=== PATIENT | female | born 1980 | race Caucasian/White ===

== ENCOUNTER 2019-12-02 16:36 | Inpatient (IN) | payer OTHER, SELFPAY ==
[2019-12-02] VITALS (13 sets, daily range): BP systolic 91–117; BP diastolic 52–87; PULSE 56–93; TEMP 36.5; BMI 26.9
--- NOTE | 2019-12-02 16:43 | LDADM ---
This patient, Kathy Bowman, was admitted to Labor/Delivery/Recovery 109 on 12/02/19 at 16:36. Plans for labor, pain management and were discussed with patient. Patient/family oriented to hospital policies and general routines including ID bracelet, bed and alarms, visiting hours, pain management, procedures, bathroom and other care routines, personal items, smoking policy, room service/diet and guest tray routines, infant security routines, and visiting hours. Patient/Family are encouraged to report perceived risks to care and to ask questions if they do not understand what they are told or what they should do. See OBIX for further documentation.
[2019-12-02 17:14] LABS: Basophils Percent Auto 0.3 % (0.2-1.2); Eosinophils Percent Auto 0.3 % (0-4.4); Hematocrit 38.7 % (37.0-47.0); Hemoglobin 13.1 g/dL (12.0-15.0); Immature Granulocyte Absolute 0.02 K/mm3 (0.00-0.031); Immature Granulocyte Percent A 0.3 % (0-0.5); Immature Platelet Fraction Pct 15.5 % (0.9-11.2); Lymphocytes Absolute Auto 1.47 K/mm3 (0.9-3.2); Lymphocytes Percent Auto 20.1 % (18.3-44.2); Mean Corpuscular HGB Conc 33.9 g/dl (32-36); Mean Corpuscular Hemoglobin 32.3 pg (26-34); Mean Corpuscular Volume 95.3 fl (80-100); Monocytes Absolute Auto 0.5 K/mm3 (0.1-0.6); Monocytes Percent Auto 7.4 % (2.6-8.5); Neutrophils Absolute Auto 5.3 K/mm3 (1.3-6.7); Neutrophils Percent Auto 71.6 % (45.5-73.1); Platelet Count Result 182 k/mm3 (150-375); Red Blood Count 4.06 M/mm3 (4.2-5.4); Red Cell Distribution Width 13.4 % (11.5-14.5); White Blood Count 7.3 K/mm3 (4.5-10.0)
[2019-12-02] MEDS: DINOPROSTONE 10 MG VAG INSERT VAGINAL (17:25)
[2019-12-02] MEDS: AMPICILLIN 2 GM/NS 100 ML 2 GM/100 ML BAG IVPB (21:00)
[2019-12-02] MEDS: LACTATED RINGERS 1,000 ML 125 ML IV CONT ×2 (21:01→23:00)
[2019-12-03] VITALS (132 sets, daily range): BP systolic 74–127; BP diastolic 39–92; PULSE 27–132; TEMP 36.1–37.5; O2SAT 70–100
[2019-12-03] MEDS: LACTATED RINGERS 1,000 ML 125 ML IV CONT ×3 (00:10→20:40)
[2019-12-03] MEDS: AMPICILLIN 1 GM/NS 50 ML 1 GM/50 ML BAG IVPB ×6 (00:10→20:35)
--- NOTE | 2019-12-03 03:09 | WPDANESEPP ---
Anes - Eval Pre Procedure Procedure: labor epidural Date/Time: 12/03/19 03:09 Surgeon: yvrose Pre Op Diagnosis: IOL Patient Data Age: 39 Gender: F Height: 1.6 m Weight: 69 kg Last Vital Signs Temp 36.5 C 12/02/19 18:27 Pulse 82 12/02/19 23:30 BP 91/52 L 12/02/19 23:30 Allergies Allergy/AdvReac Type Severity Reaction Status Date / Time adhesive tape Allergy Unknown ITCHING, Verified 01/15/18 10:36 RED latex Allergy Unknown Itching Verified 10/30/19 15:38 Sulfa (Sulfonamide Allergy Unknown Hives Verified 10/30/19 15:38 Antibiotics) Home Medications Medication Instructions Recorded Confirmed Type PNV cmb#95-ferrous fumarate-FA 1 tablet PO DAILY 10/30/19 12/02/19 History [] Laboratory Tests 12/02/19 12/02/19 12/02/19 16:53 16:53 16:53 WBC 7.3 K/mm3 K/mm3 (4.5-10.0) RBC 4.06 M/mm3 L M/mm3 (4.2-5.4) Hgb 13.1 g/dL g/dL (12.0-15.0) Hct 38.7 % % (37.0-47.0) MCV 95.3 fl fl (80-100) MCH 32.3 pg pg (26-34) MCHC 33.9 g/dl g/dl (32-36) RDW 13.4 % % (11.5-14.5) Plt Count 182 k/mm3 k/mm3 (150-375) MPV 13.0 fl H fl (7.4-10.4) Immature Gran % (Auto) 0.3 % % (0-0.5) Neut % (Auto) 71.6 % % (45.5-73.1) Lymph % (Auto) 20.1 % % (18.3-44.2) [place] % (Auto) 7.4 % % (2.6-8.5) Eos % (Auto) 0.3 % % (0-4.4) Baso % (Auto) 0.3 % % (0.2-1.2) Lymph # (Auto) 1.47 K/mm3 K/mm3 (0.9-3.2) [place] # (Auto) 0.5 K/mm3 K/mm3 (0.1-0.6) Eos # (Auto) 0.0 K/mm3 K/mm3 (0-0.3) Baso # (Auto) 0.0 K/mm3 K/mm3 (0.0-0.1) Abs Immat Gran (auto) 0.02 K/mm3 K/mm3 (0.00-0.031) Absolute Neuts (auto) 5.3 K/mm3 K/mm3 (1.3-6.7) Absolute Nucleated RBC 0.0 K/mm3 K/mm3 (0.0-0.012) Nucleated RBC % 0.0 % % (0.0-0.2) % Immature Plt Fraction 15.5 % H % (0.9-11.2) RPR Pending Blood Type A Positive Antibody Screen Negative Patient hx anesthesia problems: none Family hx anesthesia problems: none [facility] Family History Family History (Updated 10/30/19 @ 15:42 by Dakotah Womack RN) Father Lung cancer Chronic obstructive pulmonary disease High cholesterol Peripheral arterial disease Hypertension Mother Rheumatoid arthritis High cholesterol Social History Social History Smoking status: Current every day smoker Tobacco type: e-cigarettes/vaping Second hand tobacco smoke exposure: No Alcohol intake: current Substance use: never Spiritual care concerns: No Exam Day of Procedure 12/03/19 03:09
--- NOTE | 2019-12-03 08:46 | WPDOBADMIT ---
Obstetrics - Admit Note Admission Note: record reviewed. Additions to the history and/or subsequent changes in the physical findings follow. 39 y/o at 40 6/7 weeks here for induction of labor. Cervidil overnight. Had SROM at 0315, confirmed by the nursing staff. Cervidil has been withdrawn. She is having contractions every 3-5 min and has declined oxytocin so far. Ampicillin for GBS colonization. Smoker. otherwise uncomplicated. AVSS NST reactive TOCO: contractions every 3-5 min ABD soft, nontender, gravid, vertex EXT nontender Cervix 2-3/80/-2. Vertex. A: IUP at term, here for induction of labor. P: Need to continue induction with oxytocin. Reviewed risks, benefits, alternatives, and she agrees..
[2019-12-03] MEDS: OXYTOCIN 30 UNITS/NS 500 ML 30 UNITS/500 ML BAG IV CONT (08:55)
--- NOTE | 2019-12-03 12:22 | PM.OBPNLAB ---
Pain Control Date/time seen: 12/03/19 12:22 Comments: Feeling more painful contractions. Pelvic Exam Dilation (cm): 5 Effacement (%): 90 station: -2 Comments: IUPC placed. Contractions Contraction frequency: 3 Contraction pattern: Regular Status status: Category l Assessment and Plan Comments: Continue oxytocin.
[2019-12-03] MEDS: fentaNYL CITRATE INJ (*CRX) 100 MCG/2 ML VIAL 50 MCG IV PUSH (15:47)
[2019-12-03] MEDS: FAMOTIDINE 20 MG/2 ML VIAL IV PUSH (19:00)
--- NOTE | 2019-12-03 22:11 | PM.OBPNLAB ---
Pain Control Date/time seen: 12/03/19 22:11 Comments: Has started pushing Pelvic Exam Dilation (cm): 10 Effacement (%): 100 station: +2 Contractions Contraction frequency: 3 Contraction pattern: Regular Status status: Category ll Assessment and Plan Comments: Continue pushing. Anticipate .
[2019-12-04] VITALS (29 sets, daily range): BP systolic 91–126; BP diastolic 49–80; PULSE 58–135; RESP 16–18; TEMP 36.6–37.2; O2SAT 96–100
--- NOTE | 2019-12-04 00:18 | PM.OBPRVD ---
OB - Delivery Note Procedure Delivery date: 12/03/19 Procedure: Induction of labor with Induction method: per cervidil protocol Delivery augmentation: pitocin Delivery monitor: external FHT, external uterine and internal uterine Route of delivery: Laceration Description: Periurethral and Perineal - 2nd Degree Delivery repair: vicryl (3-0) Specimen: Yes (cord blood) Estimated blood loss (mL): 120 Anesthesia type: Epidural Disposition: PACU Complications: None Narrative: 39 y/o at 40 6/7 weeks gestation who presented to the hospital for induction of labor. Cervidil was placed overnight and ampicillin was administered for GBS colonization. She developed contractions and had spontaneous rupture of membranes. Clear fluid was noted. Oxytocin was administered intravenously. She received an epidural for pain control. Her labor progressed and her cervix dilated completely. She pushed with good effort. Thickly meconium-stained fluid was noted at this time. The head rotated from ROP to DIMAS position and delivered to the perineum. The anterior shoulder delivered, but a very tight nuchal cord was encountered. This was clamped and cut and the body subsequently delivered. The nose and mouth were bulb suctioned. The infant was handed off the field. Cord blood was collected. The placenta delivered spontaneously and was grossly normal in appearance. The usual 3 vessel cord was noted. A second degree midline perineal laceration was sustained. This was reapproximated using 3 0 Vicryl in the usual layered fashion. Bilateral periurethral lacerations were noted. The left-sided laceration required two figure-of eight sutures. Excellent hemostasis resulted as did excellent reapproximation of the normal anatomy. Needle and instrument counts were correct. The patient was taken to recovery room in stable condition. The infant was taken to the special care nursery for observation. I was present and scrubbed for the entire delivery. Baby Date of : 12/03/19 Time of : 23:52 Weeks of gestation at delivery: 40 Infant gender: Male Weight (pounds): 7 Weight (ounces): 15 presentation: vertex position: Right Occiput Anterior Placenta delivery description: Spontaneous and Normal Configuration cord vessel description: 3 Vessels and Nuchal Cord score one minute: 2 score five minutes: 6 score ten minutes: 8
[2019-12-04] MEDS: OXYTOCIN 30 UNITS/NS 500 ML 30 UNITS/500 ML BAG 125 UNITS IV CONT (00:20)
--- NOTE | 2019-12-04 00:32 | PM.OBDSVD ---
DS: Admitting Diagnosis Admitting Diagnosis Admitting Diagnosis: IUP at 40 6/7 weeks GBS colonization DS: Discharge Diagnosis Discharge Diagnosis (1) (normal spontaneous vaginal delivery): Code(s): O80 - Encounter for full-term uncomplicated delivery Status: Acute (2) GBS (group B Streptococcus carrier), +RV culture, currently : Code(s): O99.820 - Streptococcus B carrier state complicating Status: Acute OB - DS: Summary OB Procedures : None OB Procedures Intrapartum: Spontaneous Vag Delivery OB Procedures: : None Discharge Plan Discharge Attending physician on discharge: Sidney Sanchez Consulting providers: Kendell Fenton Discharging Clinician: Sidney Sanchez Patient Disposition: Home, Self-Care Activity: no shower, no straining and pelvic rest Diet: regular Wound Care Instructions: follow printed instructions Discharge Instructions: Education: Mom and Baby Guide Given to: Mother Follow-Up: Call your delivering provider's office for an appointment to be seen in: 6 Weeks Mom and baby should come to the [facility] for the follow-up appointment. Appointment Date/Time: December 07, 2019 at 11:00 am What to expect at your follow-up visit: Blood Pressure Check Physical Assessment Call [phone] if you are unable to keep your appointment time. BREAST CARE: * Wear a snug supportive bra. * For engorgement discomfort: Breast Feeding: * Apply warm moist washcloths * Express milk as needed to relieve engorgement * Wear loose clothing * For sore nipples: * Identify correct latch-on * Apply warm moist washcloths before and after nursing * Air dry nipples after nursing * May apply Lansinoh cream to nipples EPISIOTOMY/PERINEAL CARE: * Until bleeding stops, use your agusto bottle after urinating * Change your pad frequently throughout the day * You may take sitz baths several times a day (fill your bathtub with warm water and soak for 20 minutes.) Do NOT bathe in the water * No tub baths until seen by your physician - You may shower ACTIVITY: * Rest as much as possible. * Do not exercise or lift anything heavier than your baby (such as laundry or other children.) * Avoid stairs or driving as much as possible. * Do not put anything into the vagina. No douching, tampons, or sexual activity until seen by physician. NOTIFY PHYSICIAN IF YOU HAVE ANY QUESTIONS OR IF ANY OF THE FOLLOWING SYMPTOMS OCCUR: * If your vaginal area becomes red, swollen, or more painful than what you have experienced in the hospital. * If your vaginal bleeding becomes foul smelling. * If your vaginal bleeding becomes more heavy than a period or if your bleeding changes from pink to bright red. However, you may pass an occasional walnut-sized clot once or twice for the first week . * If you experience a sharp, shooting pain in your calves. * If you discover a hard, reddened area on your breast or if you experience flu-like symptoms. DIET: * Eat regular, well-balanced meals. * Drink plenty of fluids daily. If , drink to thirst. Call or return if temperature above 100.4? F, increased abdominal pain, increased vaginal bleeding or any new problems. Patient Instructions: Your Baby (DC), and Nipple Soreness (DC), and Breast Engorgement (DC), How to Stop Smoking (DC) Stand Alone Forms: General Discharge Information Follow-up/Referrals: Sidney Sanchez MD [Physician] - (6 weeks) Discharge Medications: New ibuprofen 600 mg tablet 600 mg PO Q6H PRN (Reason: cramps) Qty: 30 RF: 0 Continued PNV cmb#95-ferrous fumarate-FA [] 28 mg iron- 800 mcg Tablet 1 tablet PO DAILY RF: 0 Date of admission: 12/02/19 16:36 Primary Care Provider: Trevon Conte Admitting
[2019-12-04] MEDS: WITCH HAZEL 40 PADS 1 PAD TOPICAL (02:32)
[2019-12-04] MEDS: BENZOCAINE 20% AER SPR (*SP) 56 GM CAN 1 SPRAY TOPICAL (02:32)
--- NOTE | 2019-12-04 03:52 | OBPPTRN ---
Patient transferred to post room 285 via wheelchair. Support person present. Oriented to unit, room, information board, rooming in, admission packet and security measures. Patient verbalizes understanding.
[2019-12-04] MEDS: IBUPROFEN 600 MG TABLET PO ×2 (04:29→16:21)
--- NOTE | 2019-12-04 07:00 | WPDANLDPN2 ---
Anes-Prog Note L&D Date/Time: 12/04/19 07:00 Comfortable throughout: labor and delivery Neuraxial method: epidural Epidural/Spinal procedure site: clean & non-tender Neuro status: Neuro function grossly intact. Cardiovascular status: normal Respiratory status: normal Airway patency: baseline Mental status: baseline Post-Op hydration status: normal Vital Signs: Last Vital Signs Temp 36.8 C 12/04/19 03:52 Pulse 60 12/04/19 03:52 Resp 16 12/04/19 03:52 BP 100/60 12/04/19 03:52 Pulse Ox 100 12/04/19 03:52 Pain score (VAS): 0/10 I/O: Intake & Output 12/03/19 12/03/19 12/04/19 15:59 23:59 07:59 Intake Total 1100 1100 1200 Output Total 230 Balance 1100 1100 970 Post-procedural complaints: none Patient feedback: Patient satisfied with anesthetic care.
--- NOTE | 2019-12-04 07:29 | PM.OBPNVD ---
OB - PN: Subj Subjective Date/time seen: 12/04/19 07:29 Patient comments: no complaints, pain well controlled and tolerating diet [place] feeding status: exclusively breast feeding Narrative: patient doing well this AM. No complaints. Pain is well controlled. She reports minimal bleeding. She is ambulating and voiding without difficulty. She is tolerating PO. She denies N/V, fever, chills. OB - PN: Obj Data Labs CBC & Chem 7: 12/02/19 16:53 OB - PN A/P Plan day: 1 Plan: routine care Comments: patient doing well H/H stable continue routine care Time Spent With Patient Time: Total time spent is greater than 50% in coordination of care (as documented) at patient's floor/unit and/or counseling patient: Time with patient: less than 15 minutes Review of Systems Review of Systems: All systems reviewed & are unremarkable except as noted in HPI and below Exam Const: General: comfortable and no acute distress Resp: Effort & Inspection: normal respiratory effort Cardio: Rate: regular rate GI: GI Palp: Yes Soft to palpation and No Tenderness to palpation present (GI) Auscultation: normal bowel sounds Other: fundus firm and below umbilicus. Psych: Affect: normal affect
--- NOTE | 2019-12-04 07:45 | PC.NURSE ---
PT introductions made and plan of care discussed per post , pain management, breast feeding, daily care activities. PT verbalized understanding of such care.
[2019-12-04 09:31] LABS: Rapid Plasma Reagin Non-Reactive (NonReactive)
[2019-12-04] MEDS: DOCUSATE SODIUM 100 MG CAPSULE PO ×2 (11:22→16:22)
[2019-12-04] MEDS: ACETAMINOPHEN 325 MG TABLET 650 MG PO ×2 (11:23→16:22)
[2019-12-04] MEDS: LANOLIN (LANSINOH) 7.5 GM CREAM 1 APPLIC TOPICAL (11:25)
[2019-12-05 06:17] LABS: Hematocrit 34.1 % (37.0-47.0); Hemoglobin 11.8 g/dL (12.0-15.0)
--- NOTE | 2019-12-05 06:38 | PM.OBPNVD ---
OB - PN: Subj Subjective Date/time seen: 12/05/19 06:38 Patient comments: no complaints and pain well controlled baby status: doing well and nursing well OB - PN: Obj Data Labs CBC & Chem 7: 12/05/19 05:30 Labs: Laboratory Results - last 24 hr 12/02/19 12/05/19 16:53 05:30 Hgb 11.8 L Hct 34.1 L RPR Non-reactive OB - PN A/P Plan day: 2 Plan: routine care, discharge home and follow up 6 weeks Time Spent With Patient Time: Total time spent is greater than 50% in coordination of care (as documented) at patient's floor/unit and/or counseling patient: Time with patient: less than 15 minutes Review of Systems Review of Systems: All systems reviewed & are unremarkable except as noted in HPI and below Exam Const: General: no acute distress Eyes: General: appearance normal, both eyes and all related structures Neck: Neck: supple and no JVD Thyroid: thyroid normal Resp: Effort & Inspection: normal respiratory effort Auscultation: clear to auscultation bilaterally Cardio: Rate: regular rate Rhythm: regular rhythm GI: Inspection: non-distended GI Palp: Yes Soft to palpation, No Tenderness to palpation present (GI) and No Guarding due to palpation present (GI) Auscultation: normal bowel sounds : General: Yes bladder normal to palpation External Female Exam: normal external appearance Speculum Exam - Vagina: normal vaginal discharge and No vaginal bleeding Speculum Exam - Cervix: nontender Bimanual exam- vagina & uterus: bladder normal to palpation and No Cervical tenderness present OB/external & speculum: No vaginal bleeding Skin: General skin exam: no rashes or lesions noted Extrem: General: normal to inspection and no edema Psych: Mental Status: mental status grossly normal Affect: normal affect
[2019-12-05] MEDS: IBUPROFEN 600 MG TABLET PO (07:53)
[2019-12-05] MEDS: MULTIVIT/MIN/PREN/FOL AC/IRON TABLET 1 TAB PO (07:53)
[2019-12-05] MEDS: BENZOCAINE 20% AER SPR (*SP) 56 GM CAN 1 SPRAY TOPICAL (07:54)
[2019-12-05] MEDS: WITCH HAZEL 40 PADS 1 PAD TOPICAL (07:54)
[2019-12-05] MEDS: DOCUSATE SODIUM 100 MG CAPSULE PO (07:54)
[2019-12-05 08:00] VITALS: BP 107/68; PULSE 50; RESP 14; TEMP 36.8; O2SAT 100
[2019-12-07 11:54] VITALS: BP 114/76; PULSE 90; RESP 20; O2SAT 100
== END 2019-12-05 14:20 | disposition home or self-care (01) | DRG 807 ==
LOC: ANHLDR 12-04 00:33 → ANHOB2 12-05 07:00 → ANHLDR 12-07 12:44 → ANHOB2 12-07 12:44
PROVIDERS: Admitting Provider Obstetrics & Gynecology; PCP Internal Medicine; Visit Provider Obstetrics & Gynecology
DX: O76 Abnormality in fetal heart rate and rhythm complicating labor and delivery (principal); Z37.0 Single live birth; O69.2XX0 Labor and delivery complicated by other cord entanglement, with compression, not applicable or unspecified; O99.334 Smoking (tobacco) complicating childbirth; F17.210 Nicotine dependence, cigarettes, uncomplicated; O99.824 Streptococcus B carrier state complicating childbirth; O70.1 Second degree perineal laceration during delivery; Z3A.40 40 weeks gestation of pregnancy; O77.0 Labor and delivery complicated by meconium in amniotic fluid
CPT/HCPCS: 36415; 85014; 85018; 85025; 85055; 86592; 86850; 86900; 86901; 88307; A9270; J0290; J2590; J2795; J3010; J7120

== ENCOUNTER 2019-12-31 15:16 | Outpatient (RCR) | payer OTHER, SELFPAY ==
--- NOTE | 2019-12-31 15:45 | PC.NURSE ---
IN 1105 OUT 1220 HISTORY: Pt. delivered at [facility] at 41 weeks. had no complications after delivery. Mother had no complications after delivery. Infant is now 29 days/weeks old. Infant appears to be well cared for. has been seen by ICP as scheduled. Infant last seen by ICP at 1 week. Mother reports: seen at follow up visit and lost more weight, mother began supplementing. When seen at ICP for first visit, ICP advised had gained adequate weight she could discontinue with supplementation. Mother struggled with infant staying awake at feedings and maintaining latch, she continued to supplement. continues to be sleepy with latching and will want to feed frequently. Mother is pumping and using the [place] When questioned mother puts infant to breast and will use the [place] on the other breast. When mother switches to that breast he is very sleepy and does not nurse more than a few minutes. Mother continues to allow to remain at breast for 15-20 minutes and will then supplement EBM as available or formula. Mother supplements aprox 1-2 oz. Mother gets 1-1.5 oz from [place]. is not satisfied and is fussy until next feeding. Parents feed every 2-3 hours. Parents are disagreeing on infant feeding status. FOB does not believe infant is satisfied with the amounts mother is supplementing and mother feels FOB wants to feed to much. Mother wishes: Increase milk supply and feed more effectively at breast. Currently at 6-8 wets per day and 4 yellow seedy stools per day. weight: 7#15 Discharge weight: 7#3 Last Weight: 8#3 at one week Pre feeding weight: 4389 Post feeding weight: 4421 after 25 minutes at the breast with constant stimulation. OBSERVATION: Mother puts to right breast in cradle positioning with a shallow latch. began nursing eagerly with rhythmic draws and freq swallowing. Within 2-4 minutes, infant began to slow and pause. Mother did not stimulate to encourage infant to feed, infant fell asleep and mother reports this is a typical feeding. Advised to correct latch to deep latch and stimulate to encourage suckling. was easily stimulated into effective suck pattern, needing constant stimulation to stay nursing. After 25 minutes of nursing intake of 32g. Advised mother not to use Ha[place]aa while feeding as it is draining part of feeding when she switches other breast. Mother switched to other breast and infant eagerly nursed for 5 minutes before starting to slow and fall asleep. Mother she used the [place] on left breast before coming to give as part of next feeding. PLAN: Mother will follow above feeding plan using techniques for deeper latch, allowing infant to breast feed on both breasts to empty without Haakaa use. Mother will supplement to satisfaction, if he continues to be fussy and show feeding cues. Mother will then pump for 5 minutes if has had an effective feeding on both breasts, if infant has not had effective feeding on both breast she will increase pumping to 15 minutes to assist with increasing milk supply. Mother will call with further questions or concerns. Follow up phone call scheduled for Saturday01-04-2020.
== END 2020-01-22 09:07 | disposition home or self-care (01) ==
LOC: ANHOBOP 15:16
PROVIDERS: PCP Internal Medicine; Visit Provider Pediatrics
DX: Z39.1 Encounter for care and examination of lactating mother (principal)
CPT/HCPCS: 99212; G0463

== ENCOUNTER 2021-10-04 21:53 | Inpatient (IN) | payer OTHER, SELFPAY ==
[2021-10-04 22:28] VITALS: TEMP 36.6
[2021-10-04 22:39] VITALS: BMI 30.1
[2021-10-04 22:53] VITALS: BP 139/81; PULSE 55
[2021-10-04] MEDS: DINOPROSTONE 10 MG VAG INSERT VAGINAL (22:53)
[2021-10-04 23:00] VITALS: BP 120/71; PULSE 52
[2021-10-04 23:15] VITALS: BP 122/72; PULSE 55
[2021-10-04 23:16] LABS: Basophils Percent Auto 0.4 % (0.2-1.2); Eosinophils Absolute Auto 0.1 K/mm3 (0-0.3); Eosinophils Percent Auto 0.6 % (0-4.4); Hematocrit 36.3 % (37.0-47.0); Hemoglobin 12.4 g/dL (12.0-15.0); Immature Granulocyte Absolute 0.03 K/mm3 (0.00-0.031); Immature Granulocyte Percent A 0.4 % (0-0.5); Immature Platelet Fraction Pct 20.9 % (0.9-11.2); Lymphocytes Absolute Auto 1.85 K/mm3 (0.9-3.2); Lymphocytes Percent Auto 22.6 % (18.3-44.2); Mean Corpuscular HGB Conc 34.2 g/dl (32-36); Mean Corpuscular Hemoglobin 32.6 pg (26-34); Mean Corpuscular Volume 95.5 fl (80-100); Mean Platelet Volume 14.8 fl (7.4-10.4); Monocytes Absolute Auto 0.8 K/mm3 (0.1-0.6); Monocytes Percent Auto 9.8 % (2.6-8.5); Neutrophils Absolute Auto 5.4 K/mm3 (1.3-6.7); Neutrophils Percent Auto 66.2 % (45.5-73.1); Platelet Count Result 176 k/mm3 (150-375); Red Cell Distribution Width 14.3 % (11.5-14.5); White Blood Count 8.2 K/mm3 (4.5-10.0)
[2021-10-04 23:30] VITALS: BP 109/75; PULSE 55
[2021-10-04 23:41] LABS: Alanine Aminotransferase 12 U/L (6-35); Albumin Level 3.4 g/dL (3.5-5.1); Alkaline Phosphatase 111 U/L (38-126); Anion Gap 7 mmol/L (8-16); Aspartate Amino Transferase 19 U/L (14-36); Bilirubin,Total 0.2 mg/dL (0.2-1.3); Blood Urea Nitrogen 14 mg/dL (7-17); Calcium 8.3 mg/dL (8.4-10.2); Carbon Dioxide 22 mmol/L (22-30); Chloride 105 mmol/L (98-107); Estimated CRCL calculation 103 ml/min; Estimated Glomerular Filt Rate > 60; Glucose 93 mg/dL (65-110); Potassium 4.1 mmol/L (3.4-5.0); Sodium 134 mmol/L (137-145)
[2021-10-04 23:45] VITALS: BP 123/78; PULSE 48
[2021-10-05] VITALS (83 sets, daily range): BP systolic 98–180; BP diastolic 52–159; PULSE 27–224; RESP 16; TEMP 36.3–36.9; O2SAT 88–100
[2021-10-05 00:25] LABS: Uric Acid 4.9 mg/dL (2.5-7.5)
[2021-10-05] MEDS: LACTATED RINGERS 1,000 ML 125 ML IV CONT (01:15)
[2021-10-05] MEDS: AMPICILLIN 2 GM/NS 100 ML 2 GM/100 ML BAG IVPB (01:15)
[2021-10-05] MEDS: ZOLPIDEM TARTRATE (*CRX) 5 MG TABLET PO (01:25)
[2021-10-05] MEDS: AMPICILLIN 1 GM/NS 50 ML 1 GM/50 ML BAG IVPB ×2 (05:29→09:29)
[2021-10-05] MEDS: OXYTOCIN 30 UNITS/NS 500 ML 30 UNITS/500 ML BAG IV CONT (06:16)
[2021-10-05 07:19] LABS: Rapid Plasma Reagin Non-Reactive (NonReactive)
--- NOTE | 2021-10-05 08:45 | WPDOBADMIT ---
Obstetrics - Admit Note Admission Note: record reviewed. Additions to the history and/or subsequent changes in the physical findings follow. 41 y/o at 39 1/7 weeks with EFW 4th %ile and increase umbilical cord S/D doppler flow ratio. Good movement. One elvevated bp in office, but otherwise normotensive, without edema or proteinuria or epigastric/RUQ pain. No headaches. No visual field change. Here for induction of labor. GBS pos. Cervidil and ampicillin overnight, now receiving oxytocin. AVSS NST reactive TOCO: contractions every 2-5 min ABD soft, nontender, gravid, vertex EXT nontender Cervix 2-3/50/-2. AROM with clear fluid. Vertex. A: IUP at term with IUGR, abnormal umbilical cord dopplers. P: Offered induction. Reviewed risks, benefits, alternatives in detail. She agrees. Anticipate .
--- NOTE | 2021-10-05 09:55 | WPDANESEPP ---
Anes - Eval Pre Procedure Procedure: Epidural catheter placement Date/Time: 10/05/21 09:55 Surgeon: Daniel Preop Diagnosis: Pain during labor Pre Op Diagnosis: IOL Patient Data Age: 41 Gender: F Height: 1.59 m Weight: 76 kg Last Vital Signs Temp 36.6 C 10/05/21 08:00 Pulse 65 10/05/21 09:30 BP 134/86 10/05/21 09:30 Allergies Allergy/AdvReac Type Severity Reaction Status Date / Time adhesive tape Allergy Unknown ITCHING, Verified 11/29/20 10:34 RED latex Allergy Unknown Itching Verified 11/29/20 10:34 Sulfa (Sulfonamide Allergy Unknown Hives Verified 11/29/20 10:34 Antibiotics) Home Medications Medication Instructions Recorded Confirmed Type magnesium 200 mg tablet 400 mg PO DAILY 09/20/21 09/20/21 History prenat.vits,ismael,nxr-itmx-jmxky 1 tablet PO DAILY 09/20/21 10/04/21 History Laboratory Tests 10/04/21 10/04/21 10/04/21 22:47 22:47 22:47 WBC 8.2 K/mm3 K/mm3 (4.5-10.0) RBC 3.80 M/mm3 L M/mm3 (4.2-5.4) Hgb 12.4 g/dL g/dL (12.0-15.0) Hct 36.3 % L % (37.0-47.0) MCV 95.5 fl fl (80-100) MCH 32.6 pg pg (26-34) MCHC 34.2 g/dl g/dl (32-36) RDW 14.3 % % (11.5-14.5) Plt Count 176 k/mm3 k/mm3 (150-375) MPV 14.8 fl H fl (7.4-10.4) Immature Gran % (Auto) 0.4 % % (0-0.5) Neut % (Auto) 66.2 % % (45.5-73.1) Lymph % (Auto) 22.6 % % (18.3-44.2) [place] % (Auto) 9.8 % H % (2.6-8.5) Eos % (Auto) 0.6 % % (0-4.4) Baso % (Auto) 0.4 % % (0.2-1.2) Lymph # (Auto) 1.85 K/mm3 K/mm3 (0.9-3.2) [place] # (Auto) 0.8 K/mm3 H K/mm3 (0.1-0.6) Eos # (Auto) 0.1 K/mm3 K/mm3 (0-0.3) Baso # (Auto) 0.0 K/mm3 K/mm3 (0.0-0.1) Abs Immat Gran (auto) 0.03 K/mm3 K/mm3 (0.00-0.031) Absolute Neuts (auto) 5.4 K/mm3 K/mm3 (1.3-6.7) Absolute Nucleated RBC 0.0 K/mm3 K/mm3 (0.0-0.012) Nucleated RBC % 0.0 % % (0.0-0.2) % Immature Plt Fraction 20.9 % H % (0.9-11.2) Sodium Potassium Chloride Carbon Dioxide Anion Gap BUN Creatinine Estim Creat Clear Calc Estimated GFR Glucose Uric Acid 4.9 mg/dL mg/dL (2.5-7.5) Calcium Total Bilirubin AST ALT Alkaline Phosphatase Total Protein Albumin RPR Non-reactive (NonReactive) Blood Type Antibody Screen 10/04/21 10/04/21 22:47 22:47 WBC RBC Hgb Hct MCV MCH MCHC RDW Plt Count MPV Immature Gran % (Auto) Neut % (Auto) Lymph % (Auto) [place] % (Auto) Eos % (Auto) Baso % (Auto) Lymph # (Auto) [place] # (Auto) Eos # (Auto) Baso # (Auto) Abs Immat Gran (auto) Absolute Neuts (auto) Absolute Nucleated RBC Nucleated RBC % % Immature Plt Fraction Sodium 134 mmol/L L mmol/L (137-145) Potassium 4.1 mmol/L mmol/L (3.4-5.0) Chloride 105 mmol/L mmol/L (98-107) Carbon Dioxide 22 mmol/L mmol/L (22-30) Anion Gap 7 mmol/L L mmol/L (8-16) BUN 14 mg/dL mg/dL (7-17) Creatinine 0.60 mg/dL L mg/dL (0.7-1.0) Estim Creat Clear Calc 103 ml/min ml/min Estimated GFR > 60 (59 - ) Glucose 93 mg/dL mg/dL (65-110) Uric Acid Calcium 8.3 mg/dL L mg/dL (8.4-10.2) Total Bilirubin 0.2 mg/dL mg/dL (0.2-1.3) AST 19 U/L U/L (14-36) ALT 12 U/L U/L (6-35) Alkaline Phosphatase 111 U/L U/L (38-126) Total Protein
--- NOTE | 2021-10-05 12:53 | PM.OBPRVD ---
OB - Delivery Note Procedure Delivery date: 10/05/21 Procedure: Induction of labor with Induction method: Per Cervidil Protocol Delivery augmentation: Rupture of Membranes and Pitocin Delivery monitor: External FHT and External Uterine Route of delivery: Laceration Description: Periurethral and Perineal - 1st Degree Delivery repair: vicryl (3-0) Specimen: Yes (cord blood) Quantitative Blood Loss (ml): 120 Anesthesia type: Epidural Disposition: PACU Complications: None Narrative: 41 y/o at 39 1/7 weeks gestation who presented to the hospital for induction of labor. Cervidil was placed overnight. Ampicillin was given IV for GBS colonization. The following morning the Cervidil was withdrawn. Oxytocin was administered intravenously. Amniotomy was performed with return of clear fluid. She received an epidural for pain control. Her labor progressed and her cervix dilated completely. She pushed with good effort and delivered the infant's head to the perineum, followed by the body. The nose and mouth were bulb suctioned. After a delay, the cord was clamped and cut. The was handed off the field. Cord blood was collected. The placenta delivered spontaneously and was grossly normal in appearance. The usual 3 vessel cord was noted. A first degree midline perineal laceration was sustained, as was a shallow periurethral laceration. These were reapproximated using 3 0 Vicryl in interrupted figure of eight fashion. Excellent hemostasis resulted as did excellent reapproximation of the normal anatomy. Needle and instrument counts were correct. The patient was taken to recovery room in stable condition. The infant went to the nursery in stable condition. I was present and scrubbed for the entire delivery. Baby Date of : 10/05/21 Time of : 12:31 Weeks of gestation at delivery: 39 Infant gender: Male Weight (pounds): 6 Weight (ounces): 1 presentation: vertex position: Right Occiput Anterior Placenta delivery description: Spontaneous and Normal Configuration Cord Vessel Description: 3 Vessels and Delayed Cord Clamping score one minute: 8 score five minutes: 9
[2021-10-05] MEDS: ONDANSETRON INJ 4 MG/2 ML VIAL IV PUSH (13:07)
[2021-10-05] MEDS: OXYTOCIN 30 UNITS/NS 500 ML 30 UNITS/500 ML BAG 125 UNITS IV CONT (13:07)
--- NOTE | 2021-10-05 15:22 | OBPPTRN ---
Patient transferred to post room #290 via wheelchair. Support person present. Oriented to unit, room, information board, rooming in, admission packet and security measures. Patient verbalizes understanding. with patient.
[2021-10-05] MEDS: ACETAMINOPHEN 325 MG TABLET 650 MG PO (18:50)
[2021-10-06] MEDS: ACETAMINOPHEN 325 MG TABLET 650 MG PO ×2 (05:40→17:46)
[2021-10-06 05:45] VITALS: BP 131/84; PULSE 64; RESP 16; TEMP 36.8; O2SAT 100
[2021-10-06] MEDS: IBUPROFEN 600 MG TABLET PO ×3 (06:21→17:46)
[2021-10-06 06:25] LABS: Hemoglobin 12.2 g/dL (12.0-15.0)
--- NOTE | 2021-10-06 08:00 | PC.NURSE ---
Pt introductions made and plan fo care discussed per post , pain management, breast /bottle feeding, daily care activities and pending discharge to home. PT received such instructions per one to one discussion, mom baby care guide and demonstrations this shift. Pt and spouse both recipients of such instructions and no barriers to learning identified at this time. PT verbalized understanding of such care.
--- NOTE | 2021-10-06 08:05 | WPDANLDPN2 ---
Anes-Prog Note L&D Date/Time: 10/06/21 08:05 Comfortable throughout: labor and delivery Neuraxial method: epidural Epidural/Spinal procedure site: clean & non-tender Neuro status: Neuro function grossly intact. Cardiovascular status: normal Respiratory status: normal Airway patency: baseline Mental status: baseline Post-Op hydration status: normal Vital Signs: Last Vital Signs Temp 36.8 C 10/06/21 05:45 Pulse 64 10/06/21 05:45 Resp 16 10/06/21 05:45 BP 131/84 10/06/21 05:45 Pulse Ox 100 10/06/21 05:45 O2 Del Method Room Air 10/05/21 15:22 Pain score (VAS): 10 I/O: Intake & Output 10/05/21 10/06/21 10/06/21 23:59 07:59 15:59 Intake Total 330 Balance 330 Post-procedural complaints: none Patient feedback: Patient satisfied with anesthetic care.
[2021-10-06 08:40] VITALS: BP 133/77; PULSE 47; RESP 18; TEMP 36.7; O2SAT 100
[2021-10-06 09:47] VITALS: PULSE 53; RESP 18; O2SAT 100
[2021-10-06] MEDS: DOCUSATE SODIUM 100 MG CAPSULE PO ×2 (09:47→17:47)
[2021-10-06] MEDS: ACETAMINOPHEN 500 MG TABLET 1000 MG (12:03)
[2021-10-06] MEDS: WITCH HAZEL 40 PADS 1 PAD TOPICAL (12:03)
[2021-10-06] MEDS: DIBUCAINE 1% OINTMENT 30 GM TUBE 1 APPLIC TOPICAL (12:04)
[2021-10-06] MEDS: LANOLIN (LANSINOH) 7.5 GM CREAM 1 APPLIC TOPICAL (12:05)
[2021-10-06 12:27] VITALS: BP 115/72; PULSE 53; RESP 18; TEMP 36.5; O2SAT 100
--- NOTE | 2021-10-06 13:20 | PM.OBPNVD ---
OB - PN: Subj Subjective Date/time seen: 10/06/21 13:20 Narrative: Pain OK. Would like to go home. OB - PN: Obj Data Labs CBC & Chem 7: 10/06/21 06:14 10/04/21 22:47 Labs: Laboratory Results - last 24 hr 10/06/21 06:14 Hgb 12.2 Hct 36.0 L OB - PN A/P Plan Comments: A: PPD#1, doing well. P: Home to f/u 6 weeks. Exam Psych: Other: AVSS ABD soft, nontender, fundus firm EXT nontender
--- NOTE | 2021-10-06 13:20 | PM.OBDSVD ---
DS: Admitting Diagnosis Discharge Date 10/06/21 Admitting Diagnosis IUP at 39 weeks IUGR Elevated umbilical artery S:D ratio GBS colonization DS: Discharge Diagnosis Discharge Diagnosis (1) (normal spontaneous vaginal delivery): Code(s): O80 - Encounter for full-term uncomplicated delivery Status: Acute (2) GBS (group B Streptococcus carrier), +RV culture, currently : Code(s): O99.820 - Streptococcus B carrier state complicating Status: Acute OB - DS: Summary OB Procedures : None OB Procedures Intrapartum: Spontaneous Vag Delivery OB Procedures: : None Time Spent with Patient Time attestation: Total time spent providing and/or coordinating discharge services: DS: Data Data Completed and Pending Pending studies at discharge: Pending at discharge 10/05/21 12:36 Surgical [PTH] Routine Labs on day of discharge: Labs from last 24 hours 10/06/21 06:14 Hgb 12.2 Hct 36.0 L Discharge Plan Discharge Attending physician on discharge: Sidney Sanchez Discharging Clinician: Sidney Sanchez Patient Disposition: Home, Self-Care Activity: pelvic rest Diet: regular Discharge Instructions: Call or return if temperature above 100.4? F, increased abdominal pain, increased vaginal bleeding or any new problems. Stand Alone Forms: General Discharge Information Follow-up/Referrals: Sidney Sanchez MD [Physician] - 6 Weeks Discharge Medications: New ibuprofen 600 mg tablet 600 mg PO Q6H PRN (Reason: cramps) Qty: 30 0RF Continued #2 Tablet 1 tablet PO DAILY magnesium 200 mg Tablet 400 mg PO DAILY Date of admission: 10/04/21 21:53 Primary Care Provider: Trevon Espinoza Admitting Provider: Sidney Sanchez Attending physician on admission: Sidney Sanchez Condition: Stable
--- NOTE | 2021-10-06 15:37 | PC.NURSE ---
[id number] Introductions were made, then consulted with patient to assess needs related to . Mother led the conversation with her?plans to feed?her infant, the?experience so far with her 1st child and this infant. Resources provided for inpatient and outpatient services using a resource guide and mom/baby guide. Mother voiced understanding of information and requests assistance when her infant comes back into the room. Primary RN brought into the room shortly after introductions. Mother works well with her infant with encouragement and education. Encouraged understanding of the benefits of skin to skin (unwrapping and placing vertically on her chest), responsive feeding and how to watch for early feeding signs, frequency of feeding on demand about every 8-12 times in 24 hours (every 2-3 hours), milk production, duration of feeding, signs of adequate intake/output and how to record on the feeding sheet. Reviewed positioning and ear, shoulder, hip alignment, supporting the breast, asymmetrical latch (off-center), and leading with the chin with a big open side gape. latched effectively to the left breast using cross cradle positioning. Latch appears to be less than 90 degrees. Demonstrated to mother how to detach infant from the breast. Nipple is very slightly misshaped. At times, latched to the breast similar to what an would do when latching to a bottle. Discussed with mom the risks and benefits to bottle feeding her . Mother has fears of not making enough milk for this infant. On further exploration and discussion with the father of the infant it is discovered that mom was not infant at night, was every 30 min for 5 min, not pumping at night, and pumping 6 times a day. We reviewed how non-nutritive sucking is not effective and pumping 6 times in a 24 hour day is not adequate for good milk supply Mother laid-back in a recliner position and was stimulated with massage touch, talked to, position changed, and encouraged to explore mothers chest and self-latched to the left breast effectively with no pain. After 10-15 minutes mother repeated recent education demonstrating understanding and collaborated with infant to latch to the right breast. Mother denies any pain. Infant began to non-nutritive suck and was detached. Mother requests assistance to latch to the right breast using football positioning. latched optimally to the right breast in football position. Education given to mother of how to visualize suck/swallow ratios and listening for drinking at the breast. Infant was able to maintain latch without discomfort to mother. Nipple care reviewed with optimal latch and good positioning. Reminding mother of comfort measures of healing with a warm and wet washcloth to rinse breast, then leave open to air-dry as needed. Reviewed good handwashing when or touching the breast/nipples to prevent infection. Resources used to facilitate learning were used with the visual handouts, tool, mom and baby guide. Mother voiced understanding of responsive feedings, stimulating with skin to skin, hand expressed colostrum, massage touch, talking to to encourage on demand or if it has been 2 -3 hours since the start of the last . Reminded parents to use good handwashing technique to prevent infection. Mother is feeding appropriately for growth of and understands stimulating to eat if needed. Infant has had appropriate feedings in the last 24 hours meets the outcomes for weight, output and jaundice at this time. Mother states she is confident to continue effectively , pumping if needed, and supplementing if needed her infant at home. Reinforced understanding of milk production, transition of milk, signs of adequate intake, prevention/relief of engorgement, responsive afte
--- NOTE | 2021-10-06 17:45 | PC.NURSE ---
PT received discharge instructions per protocol and verbalized understanding of such care.
--- NOTE | 2021-10-06 18:20 | PC.NURSE ---
PT discharged to home ambulatory accompanied by spouse and and taken to waiting car. follow up appts confirmed
[2021-10-09 11:01] VITALS: BP 130/84; PULSE 67; RESP 16; TEMP 37.1; O2SAT 100
== END 2021-10-06 18:20 | disposition home or self-care (01) | DRG 807 ==
LOC: ANHLDR 10-05 12:59 → ANHOB2 10-05 18:18
PROVIDERS: Admitting Provider Obstetrics & Gynecology; PCP Internal Medicine; Visit Provider Obstetrics & Gynecology
DX: O36.5930 Maternal care for other known or suspected poor fetal growth, third trimester, not applicable or unspecified (principal); Z37.0 Single live birth; O99.824 Streptococcus B carrier state complicating childbirth; O70.0 First degree perineal laceration during delivery; O71.82 Other specified trauma to perineum and vulva; O76 Abnormality in fetal heart rate and rhythm complicating labor and delivery; Z3A.39 39 weeks gestation of pregnancy
CPT/HCPCS: 36415; 80053; 84550; 85014; 85018; 85025; 85055; 86592; 86850; 86900; 86901; 88307; A9270; J0290; J2405; J2590; J2795; J7120

== ENCOUNTER 2024-01-17 06:04 | Inpatient (IN) | payer OTHER, SELFPAY ==
[2024-01-17] VITALS (70 sets, daily range): BP systolic 95–142; BP diastolic 59–92; PULSE 38–131; RESP 16–18; TEMP 36.4–36.8; O2SAT 96–100; BMI 26.5
[2024-01-17] MEDS: AMPICILLIN 2 GM/NS 100 ML 2 GM/100 ML BAG IVPB (06:59)
[2024-01-17] MEDS: OXYTOCIN 30 UNITS/NS 500 ML 30 UNITS/500 ML BAG IV CONT (07:00)
[2024-01-17] MEDS: LACTATED RINGERS 1,000 ML 125 ML IV CONT (07:01)
--- NOTE | 2024-01-17 07:15 | LDADM ---
This patient, Kathy Bowman, was admitted to Labor/Delivery/Recovery 108 on 01/17/24 at 06:04. Plans for labor, pain management and were discussed with patient. Patient/family oriented to hospital policies and general routines including ID bracelet, bed and alarms, visiting hours, pain management, procedures, bathroom and other care routines, personal items, smoking policy, room service/diet and guest tray routines, infant security routines, and visiting hours. Patient/Family are encouraged to report perceived risks to care and to ask questions if they do not understand what they are told or what they should do. See [facility]BIX for further documentation.
[2024-01-17 07:57] LABS: Basophils Percent Auto 0.3 % (0.2-1.2); Eosinophils Percent Auto 0.6 % (0-4.4); Hematocrit 39.6 % (37.0-47.0); Hemoglobin 13.5 g/dL (12.0-15.0); Immature Granulocyte Absolute 0.03 K/mm3 (0.00-0.031); Immature Granulocyte Percent A 0.4 % (0-0.5); Immature Platelet Fraction Pct 15.7 % (0.9-11.2); Lymphocytes Absolute Auto 2.13 K/mm3 (0.9-3.2); Lymphocytes Percent Auto 29.8 % (18.3-44.2); Mean Corpuscular HGB Conc 34.1 g/dl (32-36); Mean Corpuscular Hemoglobin 32.7 pg (26-34); Mean Corpuscular Volume 95.9 fl (80-100); Mean Platelet Volume 13.7 fl (7.4-10.4); Monocytes Absolute Auto 0.8 K/mm3 (0.1-0.6); Monocytes Percent Auto 10.8 % (2.6-8.5); Neutrophils Absolute Auto 4.2 K/mm3 (1.3-6.7); Neutrophils Percent Auto 58.1 % (45.5-73.1); Platelet Count Result 188 k/mm3 (150-375); Red Blood Count 4.13 M/mm3 (4.2-5.4); Red Cell Distribution Width 13.8 % (11.5-14.5); White Blood Count 7.2 K/mm3 (4.5-10.0)
[2024-01-17 08:39] LABS: Rapid Plasma Reagin Non-Reactive (NonReactive)
--- NOTE | 2024-01-17 08:39 | WPDOBADMIT ---
Obstetrics - Admit Note Admission Note: record reviewed. Additions to the history and/or subsequent changes in the physical findings follow. 43 y/o at 41 1/7 weeks here for induction of labor. GBS pos. AVSS NST reactive TOCO: contractions irregularly ABD soft, nontender, gravid, vertex EXT nontender Cervix 3-4/50/-2. AROM with clear fluid. Verttex. A: IUP at term with favorable cervix, desiring induction of labor. GBS pos. P: Oxytocin, ampicillin. Anticipate .
[2024-01-17 08:45] LABS: HIV 1/2 Ab P24 Ag Result Negative (Negative)
--- NOTE | 2024-01-17 09:48 | WPDANESEPP ---
Anes - Eval Pre Procedure Procedure: Labor epidural Date/Time: 01/17/24 09:48 Surgeon: Daniel Preop Diagnosis: Abdominal pain with contractions Pre Op Diagnosis: IOL Patient Data Age: 43 Gender: F Height: 1.6 m Weight: 68 kg Last Vital Signs Temp 98.1 F 01/17/24 07:00 Pulse 69 01/17/24 09:45 BP 122/78 01/17/24 09:45 O2 Del Method Room Air 01/17/24 07:13 Allergies Allergy/AdvReac Type Severity Reaction Status Date / Time adhesive tape Allergy Unknown ITCHING, Verified 12/20/23 14:35 RED latex Allergy Unknown Itching Verified 12/20/23 14:35 Sulfa (Sulfonamide Allergy Unknown Hives Verified 12/20/23 14:35 Antibiotics) Home Medications Medication Instructions Recorded Confirmed Type magnesium 200 mg tablet 400 mg PO DAILY 09/20/21 01/17/24 History prenat.vits,ismael,kux-kkaz-nixto 1 tablet PO DAILY 09/20/21 10/04/21 History ibuprofen 600 mg tablet 600 mg PO Q6H PRN cramps #30 tabs 10/05/21 Rx Laboratory Tests 01/17/24 06:38 WBC 7.2 K/mm3 (4.5-10.0) RBC 4.13 L M/mm3 (4.2-5.4) Hgb 13.5 g/dL (12.0-15.0) Hct 39.6 % (37.0-47.0) MCV 95.9 fl (80-100) MCH 32.7 pg (26-34) MCHC 34.1 g/dl (32-36) RDW 13.8 % (11.5-14.5) Plt Count 188 k/mm3 (150-375) MPV 13.7 H fl (7.4-10.4) Immature Gran % (Auto) 0.4 % (0-0.5) Neut % (Auto) 58.1 % (45.5-73.1) Lymph % (Auto) 29.8 % (18.3-44.2) [place] % (Auto) 10.8 H % (2.6-8.5) Eos % (Auto) 0.6 % (0-4.4) Baso % (Auto) 0.3 % (0.2-1.2) Lymph # (Auto) 2.13 K/mm3 (0.9-3.2) [place] # (Auto) 0.8 H K/mm3 (0.1-0.6) Eos # (Auto) 0.0 K/mm3 (0-0.3) Baso # (Auto) 0.0 K/mm3 (0.0-0.1) Abs Immat Gran (auto) 0.03 K/mm3 (0.00-0.031) Absolute Neuts (auto) 4.2 K/mm3 (1.3-6.7) Absolute Nucleated RBC 0.000 K/mm3 (0.0-0.012) Nucleated RBC % 0.0 % (0.0-0.2) % Immature Plt Fraction 15.7 H % (0.9-11.2) RPR Non-reactive (NonReactive) HIV 1&2 Ab/P24 Ag 4thGn Negative (Negative) Blood Type A Positive Antibody Screen Negative : gestational age HCG: positive Patient hx anesthesia problems: none Family hx anesthesia problems: none Results Review: All pre-operative results and documents have been reviewed as part of the pre-operative evaluation. [facility] Past Medical History Medical History Acute nasopharyngitis (common cold) Anxiety Anxiety and depression Chronic interstitial cystitis Overweight (BMI 25.0-29.9) Pharyngitis and not yet delivered Smoking Smoking trying to quit Tendinitis of right forearm Family History Family History Father High cholesterol Lung cancer Peripheral arterial disease Chronic obstructive pulmonary disease Hypertension Alcoholism Mother Rheumatoid arthritis High cholesterol Grandparent Cancer Grandparent Cancer Grandparent Dementia Sibling Alcoholism Sibling Alcoholism Social History Social History Smoking status: Never smoker Tobacco type: e-cigarettes/vaping Second hand tobacco smoke exposure: Yes Alcohol intake: current Substance use: never Do You Feel Safe in your Home?: Yes Lack of Transportation: No Lack of Food: Never True Current Housing: I Have Housing Concerned About Future Housing: No Difficulty Paying Gas/Electric Bills: No Difficulty Paying for Meds: No Currently Unemployed: No Education: Bachelor's Degree Difficulty w/ Childcare or Family Care: No Spiritual care concerns: No Exam Day of Procedure 01/17/24 09:48 Patient weight: overweight Airway: Mallampati scale class II
[2024-01-17] MEDS: AMPICILLIN 1 GM/NS 50 ML 1 GM/50 ML BAG IVPB (11:38)
--- NOTE | 2024-01-17 13:22 | PM.OBPRVD ---
OB - Vaginal Delivery Note Procedure Delivery date: 01/17/24 Events: Elective Induction of Labor and Positive Group B Strep (GBS) Induction method: Per Pitocin Protocol Delivery augmentation: Rupture of Membranes Delivery monitor: External FHT, External Uterine and Internal Uterine Route of delivery: Episiotomy description: None Laceration Description: Perineal - 1st Degree Delivery repair: vicryl (3-0) Specimen: Yes (cord blood) Quantitative Blood Loss (ml): 55 Anesthesia type: Epidural Disposition: PACU Complications: None Narrative: 43 y/o at 41 1/7 weeks gestation who presented to the hospital for induction of labor. Oxytocin was administered intravenously. Amniotomy was performed with return of clear fluid. She received an epidural for pain control. Her labor progressed and her cervix dilated completely. She pushed with good effort and delivered the 's head to the perineum. A loose nuchal cord was splinted and the body delivered. The cord was reduced and the nose and mouth were bulb suctioned. After a delay, the cord was clamped and cut. The was handed off the field. Cord blood was collected. The placenta delivered spontaneously and was grossly normal in appearance. The usual 3 vessel cord was noted. A first degree midline perineal laceration was sustained. This was reapproximated using 3 0 Vicryl in interrupted figure of eight fashion. Excellent hemostasis resulted as did excellent reapproximation of the normal anatomy. Needle and instrument counts were correct. The patient was taken to recovery room in stable condition. The infant went to the nursery in stable condition. I was present and scrubbed for the entire delivery. Baby Date of : 01/17/24 Time of : 13:09 Gestational Age by Date: 43 gender: Male presentation: vertex position: Left Occiput Anterior Placenta delivery description: Spontaneous and Normal Configuration Cord Vessel Description: 3 Vessels and Delayed Cord Clamping
--- NOTE | 2024-01-17 13:25 | PM.OBDSVD ---
DS: Admitting Diagnosis Discharge Date 01/18/24 Admitting Diagnosis IUP at 41 1/7 weeks GBS colonization DS: Discharge Diagnosis Discharge Diagnosis (1) (normal spontaneous vaginal delivery): Code(s): O80 - Encounter for full-term uncomplicated delivery Status: Acute (2) GBS (group B Streptococcus carrier), +RV culture, currently : Code(s): O99.820 - Streptococcus B carrier state complicating Status: Acute OB - DS: Summary OB Procedures : None OB Procedures Intrapartum: Spontaneous Vag Delivery and GBS prophylaxis OB Procedures: : None Peripartum Data Laceration Description: Perineal - 1st Degree Episiotomy description: None Time Spent with Patient Time attestation: Total time spent providing and/or coordinating discharge services: DS: Data Data Completed and Pending Labs on day of discharge: Labs from last 24 hours 01/17/24 06:38 WBC 7.2 RBC 4.13 L Hgb 13.5 Hct 39.6 MCV 95.9 MCH 32.7 MCHC 34.1 RDW 13.8 Plt Count 188 MPV 13.7 H Immature Gran % (Auto) 0.4 Neut % (Auto) 58.1 Lymph % (Auto) 29.8 [place] % (Auto) 10.8 H Eos % (Auto) 0.6 Baso % (Auto) 0.3 Lymph # (Auto) 2.13 [place] # (Auto) 0.8 H Eos # (Auto) 0.0 Baso # (Auto) 0.0 Abs Immat Gran (auto) 0.03 Absolute Neuts (auto) 4.2 Absolute Nucleated RBC 0.000 Nucleated RBC % 0.0 % Immature Plt Fraction 15.7 H RPR Non-reactive HIV 1&2 Ab/P24 Ag 4thGn Negative Blood Type A Positive Antibody Screen Negative Discharge Plan Discharge Attending physician on discharge: Sidney Sanchez Discharging Clinician: Sidney Sanchez Patient Disposition: Home, Self-Care Activity: pelvic rest Diet: regular Discharge Instructions: Call or return if temperature above 100.4? F, increased abdominal pain, increased vaginal bleeding or any new problems. Stand Alone Forms: General Discharge Information Follow-up/Referrals: Sidney Sanchez MD [Physician] - 6 Weeks Discharge Medications: New bisacodyl [Dulcolax (bisacodyl)] 10 mg suppository 10 mg RECTAL DAILY PRN (Reason: constipation) Qty: 12 1RF ibuprofen 600 mg tablet 600 mg PO Q6H PRN (Reason: cramps) Qty: 30 0RF onqjticqvv-ozhkmgfckwymc-ikzz [Fioricet] 50-300-40 mg capsule 1 cap PO Q4-6H PRN (Reason: headache) Qty: 30 0RF Continued prenat.vits,ismael,asu-hsjg-bwkgc Tablet 1 tablet PO DAILY magnesium 200 mg Tablet 400 mg PO DAILY Discontinued ibuprofen 600 mg tablet 600 mg PO Q6H PRN (Reason: cramps) Qty: 30 0RF Date of admission: 01/17/24 06:04 Primary Care Provider: UNKNOWN,DOCTOR Admitting Provider: Sidney Sanchez Attending physician on admission: Sidney Sanchez Condition: Stable
[2024-01-17] MEDS: OXYTOCIN 30 UNITS/NS 500 ML 30 UNITS/500 ML BAG 125 UNITS IV CONT (13:39)
[2024-01-17] MEDS: COSYNTROPIN 0.25 MG/ML VIAL 1 MG IV PUSH (14:39)
[2024-01-17] MEDS: IBUPROFEN 600 MG TABLET PO ×2 (15:25→21:36)
[2024-01-17] MEDS: WITCH HAZEL 40 PADS 1 PAD TOPICAL (15:25)
[2024-01-17] MEDS: BENZOCAINE 20% AER SPR (*SP) 56 GM CAN 1 SPRAY TOPICAL (15:25)
--- NOTE | 2024-01-17 15:43 | OBPPTRN ---
Patient transferred to post room #279 via wheelchair. Support person present. Oriented to unit, room, information board, rooming in, admission packet and security measures. Patient verbalizes understanding.
[2024-01-17] MEDS: ACETAMINOPHEN 325 MG TABLET 650 MG PO (16:18)
[2024-01-17] MEDS: DOCUSATE SODIUM 100 MG CAPSULE PO (16:18)
[2024-01-17] MEDS: SIMETHICONE 80 MG TAB.CHEW PO (16:18)
[2024-01-17] MEDS: BISACODYL 10 MG SUPPOSITORY RECTAL (17:24)
[2024-01-18 04:05] VITALS: BP 134/85; PULSE 62; RESP 18; TEMP 36.8
[2024-01-18] MEDS: ACETAMINOPHEN 325 MG TABLET 650 MG PO ×4 (04:05→21:14)
[2024-01-18] MEDS: IBUPROFEN 600 MG TABLET PO ×4 (04:05→21:12)
[2024-01-18 05:00] LABS: Hemoglobin 12.3 g/dL (12.0-15.0)
[2024-01-18] MEDS: DOCUSATE SODIUM 100 MG CAPSULE PO ×2 (08:42→21:03)
[2024-01-18] MEDS: MULTIVIT/MIN/PREN/FOL AC/IRON TABLET 1 TAB PO (08:42)
[2024-01-18 08:57] VITALS: BP 97/58; PULSE 57; RESP 16; TEMP 36.3; O2SAT 98
--- NOTE | 2024-01-18 09:00 | PC.NURSE ---
Introductions were made, then consulted with patient to assess needs related to . Mother explains that she did attempt to breastfeed and pump with her other two children. Her oldest child was breastfed for 3 months due to supply issues(low) and her youngest child was breastfed for 9 months due to supply issues (low)- both were supplemented with formula in addition to the breast milk. She was properly fitted for her correct flange size by RN and is currently using size 21mm flange. Mother explains that when she is done pumping and feeding, her nipples are white. Education provided for nipple vasospasms, she denies any pain or discomfort accompanying the discoloration. Explained that she only needs to be pumping 15-20 minutes every 2-3 hours and there is no need to pump if infant is efficiently at the breast for an appropriate feeding. She was pumping 40-45 minutes each time. She will call this RN with next feeding to assess infants latch as well. New patient education folder given to mother which included how to clean her breast pump and store her breast milk. Communication board updated with contact information. Reported to the Primary RN.
[2024-01-18] MEDS: WITCH HAZEL 40 PADS 1 PAD TOPICAL (09:35)
--- NOTE | 2024-01-18 09:44 | PC.NURSE ---
Patient explained that she has intense pain in her head and back when she sits up in bed. Explained the headache is better when she lays flat but her back is still very sore. Got patient heating pad and gave pain meds. This RN explained that I would be reaching out to anesthesia to come see her. Patient requested to not have Julián come into her room, this RN explained that she would ensure another anesthesiologist would be in to see her.
--- NOTE | 2024-01-18 10:36 | PM.OBPNVD ---
OB - PN: Subj Subjective Date/time seen: 01/18/24 10:36 Narrative: Pain OK. Postural headache. Otherwise, would like to go home. OB - PN: Obj Data Labs 01/18/24 04:48 Labs: Laboratory Results - last 24 hr 01/18/24 04:48 Hgb 12.3 Hct 36.0 L OB - PN A/P Plan Comments: A: PPD#1 doing well overall. P: Anesthesia is planning to see her regarding headache. Plan home to f/u 6 weeks. Exam Psych: Other: AVSS ABD soft, nontender, fundus firm EXT nontender
--- NOTE | 2024-01-18 10:59 | WPDANLDPN2 ---
Anes-Prog Note L&D Date/Time: 01/18/24 10:59 Comfortable throughout: labor and delivery Neuraxial method: epidural Epidural/Spinal procedure site: clean & non-tender Neuro status: Neuro function grossly intact. Cardiovascular status: normal Respiratory status: normal Airway patency: baseline Mental status: baseline Post-Op hydration status: normal Vital Signs: Last Vital Signs Temp 36.3 C L 01/18/24 08:57 Pulse 57 L 01/18/24 08:57 Resp 16 01/18/24 08:57 BP 97/58 L 01/18/24 08:57 Pulse Ox 98 01/18/24 08:57 O2 Del Method Room Air 01/17/24 19:50 Pain score (VAS): 7 Patient feedback: patient had a known wet tap on 01/16. patient was sitting up in bed with lights off when coming into the room. I thoroughly evaluated patient and explained PDPH. I reassured her this is not a mcfp/permanent problem and explained both the conservative and blood patch measures. She did have some positional headaches, however was sitting up for over an hour and said it was tolerable. she did have neck stiffness or pain when flexing forward. I explained medications, fluids and blood patch options. At this time her, her partner, Dr Sanchez and I agree conservative measures are appropriate and blood patch is not worth the risk. Patient was also encouraged to come back if symptoms got worse or she decided to get a blood patch.
[2024-01-18] MEDS: ACETAMINOPHEN/BUTALBITAL/CAFFEINE 325-50-40 MG TABLET (FIORICET) 1 TAB PO ×4 (11:25→23:57)
[2024-01-18 11:36] VITALS: BP 111/66; PULSE 60; RESP 18; TEMP 36.4; O2SAT 99
--- NOTE | 2024-01-18 15:20 | PC.NURSE ---
Called to bedside to assess latch. Upon entering room, was latched and actively nursing on the left breast in cross cradle position. Latch looks appropriate and swallows were noted. Mother feels confident nursing and will call this RN with any questions or concerns.
[2024-01-18 20:20] VITALS: BP 110/69; PULSE 71; RESP 18; TEMP 36.5; O2SAT 100
[2024-01-18] MEDS: SIMETHICONE 80 MG TAB.CHEW PO (21:03)
--- NOTE | 2024-01-18 23:16 | WPDANESEBPP ---
Anes - Epidural Blood Patch PN Date/Time: 01/18/24 [id number] Consent: I have discussed with the patient/family/POA, the rationale of a lumbar epidural autologous blood patch for the treatment of post-dural puncture headache (spinal headache), including associated potential risks, benefits, complications and side effects. I have also discussed more conservative treatment options such as intravenous hydration, caffeine and non-prescription analgesics. The patient/family/POA, understand(s) and wish(es) to proceed with epidural autologous blood patch as treatment for the patient's post-dural puncture headache. Time-Out: A pre-procedural Time-Out was completed immediately before starting the procedure and confirmed: Patient Identification, Site, Procedure, Patient Position and the Availability of Requisite Equipment. Clinical Indications: severe postural headache with known wet tap Epidural Insertion Note Patient position: sitting Skin prep: chlorhexidine Needle: 18 gauge Tuohy-Schliff 20 ml autologus blood delivered. Blood obtained from right AC under sterile conditions (Chloroprep) with 22 g butterfly needle. Technique: loss of resistance Skin anesthesia: lidocaine 1% Observations: tolerated well Complications: none
[2024-01-19] VITALS: BP 100/58; PULSE 96; RESP 16; TEMP 36.9; O2SAT 100
--- NOTE | 2024-01-19 01:56 | PM.OBPNVD ---
OB - PN: Subj Subjective Date/time seen: 01/19/24 01:56 Narrative: Asleep at time of my rounding. She got a blood patch last evening and is reportedly feeling much better. Would like to go home. OB - PN: Obj Data Labs 01/18/24 04:48 Labs: Laboratory Results - last 24 hr 01/18/24 04:48 Hgb 12.3 Hct 36.0 L OB - PN A/P Assessment and Plan (1) (normal spontaneous vaginal delivery): Code(s): O80 - Encounter for full-term uncomplicated delivery Status: Acute (2) Postdural puncture headache: Code(s): G97.1 - Other reaction to spinal and lumbar puncture Status: Acute Plan day: 2 Comments: A: PPD#2, doing well. Headache improved, s/p blood patch. P: Home to f/u 6 weeks.
--- NOTE | 2024-01-19 03:44 | PC.NURSE ---
2200- Pt called out, ELLIOTT worsening, pt very anxious wanting to speak to anesthesia regarding blood patch. Dr. Stevenson notified and came to evalute pt at beside agreed that blood patch was best option at this point. 2300- Blood pt completed in pts room with assist of this RN. Pt laying flat post procedure for one hour, pt aware to not resume a sitting position and to call RN for any assitance needed. Pt agreed
--- NOTE | 2024-01-19 03:47 | PC.NURSE ---
0100- Pt up oob to restroom without difficulty, pt states that ELLIOTT has resolved completely. she is having pressure and stiffness at blood patch site, this RN explained that this is to be expected post procedure. Assisted pt back into bed without difficulty. Pt instructed to call for RN assitance with next need to void.
[2024-01-19] MEDS: IBUPROFEN 600 MG TABLET PO (04:30)
[2024-01-19 04:40] VITALS: BP 97/56; PULSE 52; RESP 14; TEMP 36.6; O2SAT 99
[2024-01-19 07:00] VITALS: BP 119/81; PULSE 51; RESP 16; TEMP 36.5; O2SAT 100
[2024-01-19] MEDS: DOCUSATE SODIUM 100 MG CAPSULE PO (08:14)
[2024-01-19] MEDS: MULTIVIT/MIN/PREN/FOL AC/IRON TABLET 1 TAB PO (08:14)
[2024-01-19] MEDS: ACETAMINOPHEN/BUTALBITAL/CAFFEINE 325-50-40 MG TABLET (FIORICET) 1 TAB PO (08:14)
[2024-01-19] MEDS: BENZOCAINE 20% AER SPR (*SP) 56 GM CAN 1 SPRAY TOPICAL (08:17)
[2024-01-19] MEDS: WITCH HAZEL 40 PADS 1 PAD TOPICAL (08:17)
== END 2024-01-19 12:47 | disposition home or self-care (01) | DRG 807 ==
LOC: ANHLDR 13:26 → ANHOB2 16:16
PROVIDERS: Admitting Provider Obstetrics & Gynecology; Visit Provider Obstetrics & Gynecology
DX: O99.824 Streptococcus B carrier state complicating childbirth (principal); Z37.0 Single live birth; O70.0 First degree perineal laceration during delivery; O69.81X0 Labor and delivery complicated by cord around neck, without compression, not applicable or unspecified; O74.5 Spinal and epidural anesthesia-induced headache during labor and delivery; Z3A.41 41 weeks gestation of pregnancy
CPT/HCPCS: 36415; 85014; 85018; 85025; 85055; 86592; 86703; 86850; 86900; 86901; A9270; G0432; J0290; J0834; J2590; J2795; J7120